=== PATIENT | female | born 1950 | race Caucasian/White ===

== ENCOUNTER → 2020-12-04 17:21 | Outpatient (CLI) | payer MEDICARE, SELFPAY ==
--- NOTE | ~2020-12-04 | XR_ITS ---
EXAMINATION: XR ankle RT min 3V DATE: 12/04/2020 18:11 INDICATION: Right ankle pain. TECHNIQUE: 4 views of right ankle were obtained. COMPARISON: None. FINDINGS: Bone alignment is normal. No fracture. Joint spaces are well maintained. There are enthesop hytes at the posterior and plantar aspects of calcaneal tuberosity. There is ankle soft tissue swelli ng. IMPRESSION: 1. No fracture. Reviewed, dictated and finalized at location A. IMPRESSION: 1. No fracture.
== END ==
PROVIDERS: PCP Internal Medicine; Visit Provider Internal Medicine
DX: M25.571 Pain in right ankle and joints of right foot (principal)
CPT/HCPCS: 73610

== ENCOUNTER 2023-08-22 17:04 | Emergency (ER) | payer MEDICARE, SELFPAY ==
--- NOTE | ~2023-08-22 | XR_ITS ---
EXAMINATION: XR foot RT min 3V DATE: 08/22/2023 17:30 INDICATION: Nontraumatic pain at the lateral right midfoot TECHNIQUE: Dorsoplantar, two oblique and lateral views of the right foot were obtained. COMPARISON: Right ankle radiographs dated 12/04/2020 FINDINGS: Diffuse osteopenia. Bone alignment is normal. No fracture. Severe osteoarthritis at the second and th ird distal interphalangeal joints. Moderate osteoarthritis at the second-fourth tarsal metatarsal amando nts and several of the remaining interphalangeal joints and mild at the first metatarsophalangeal and first and fifth tarsal metatarsal joints. No erosions to suggest inflammatory arthritis. Moderate si ze plantar calcaneal spur and tiny Achilles calcaneal spur. Soft tissue swelling at the dorsolateral aspect of the midfoot.. IMPRESSION: 1. 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 No acute osseous abnor mality. Reviewed, dictated and finalized at location A. [employer] IMPRESSION: 1. 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 No acute osseous abnormality.
[2023-08-22 17:10] VITALS: BP 136/79; PULSE 100; RESP 16; TEMP 37.6; O2SAT 98
--- NOTE | 2023-08-22 17:32 | ED.GENADULT ---
HPI - General Adult General Chief complaint: Extremity Injury, Lower Stated complaint: Right Foot Pain Source: patient, RN notes reviewed and old records reviewed Mode of arrival: ambulatory Limitations: no limitations History of Present Illness HPI narrative: 73-year-old female presents to [facility] with complaints of right foot pain and swelling that started on Friday. Patient denies injury. Patient states has tried resting, icing, and elevating with little relief. MD complaint: Foot pain Onset (ago): day(s) (5) Related Data Home Medications Medication Instructions Recorded Confirmed levothyroxine 88 mcg tablet mcg 08/22/23 meclizine 25 mg tablet mg 08/22/23 metformin 500 mg tablet,extended mg PO 08/22/23 release 24 hr nortriptyline 25 mg capsule mg 08/22/23 omeprazole 20 mg capsule,delayed mg 08/22/23 release rosuvastatin 5 mg tablet mg 08/22/23 sumatriptan succinate 100 mg tablet mg PO 08/22/23 topiramate 50 mg tablet mg 08/22/23 triamterene 37.5 cap 08/22/23 mg-hydrochlorothiazide 25 mg capsule Allergies Allergy/AdvReac Type Severity Reaction Status Date / Time Penicillins Allergy Rash Verified 08/22/23 17:22 Review of Systems Constitutional: Constitutional: Reports no additional constitutional complaints, Denies body ache(s), Denies chills, Denies fatigue, Denies fever(s) and Denies headache(s) Eyes: Eyes: Reports no additional eye complaints and Denies blurry vision ENT: Reports system reviewed and no additional complaints, except as documented, Denies vertigo, Denies dizziness, Denies ear discharge, Denies otalgia, Denies facial pain, Denies headache(s), Denies nasal congestion, Denies nasal discharge, Denies sinus pain, Denies sinus pressure and Denies sore throat Cardiovascular: Cardiovascular: Reports no additional cardiovascular complaints, Denies chest pain, Denies chest pain at rest, Denies rapid heart rate and Denies dyspnea Respiratory: Respiratory: Reports no additional respiratory complaints, Denies chest congestion, Denies cough, Denies pain on inspiration, Denies pain with cough and Denies dyspnea Gastrointestinal: Gastrointestinal: Denies abdominal pain, Denies diarrhea, Denies nausea and Denies vomiting Musculoskeletal: Musculoskeletal: Reports as per HPI Comments: right foot pain Integumentary/Breasts: Skin/Breast: Denies rash Neurologic: Reports system reviewed and no additional complaints, except as documented, Denies vertigo, Denies dizziness and Denies headache(s) Endocrine: Endocrine: Denies fatigue PMFSH Comments At the time of my signature, I reviewed and agree with the nursing past medical, surgical, social, and family history. There is no relevant family history pertinent to the patient complaint. Exam Const: General: cooperative, healthy appearing, no acute distress and well nourished Nutritional Appearance: well nourished Orientation/consciousness: patient oriented x3 Limitations: no limitations HENMT: Head: normal to inspection and normocephalic Ears: external ears normal, TM's normal bilaterally, mastoids normal and Abnormal EAC present Face/Nose/Sinus: normal facial exam Face and sinus: normal facial exam Mouth: Yes Normal oral and palatal mucosa present, Yes oropharynx normal and Yes moist mucous membranes Throat: tonsils normal, uvula midline and no uvular edema Eyes: General: appearance normal, both eyes and all related structures Sclera: sclerae normal Pupils: Equal, round and reactive pupils present Resp: Effort & Inspection: normal respiratory effort, able to speak in complete sentences, no audible wheezes, no cough, no respiratory distress and no retractions Cardio: Rate: regular rate Skin: General skin exam: normal color and no rashes or lesions noted Neuro: General: patient oriented x3 Cranial nerves: Yes Equal, round and reactive pupils present Extrem: Left lower extremity: foot Details: normal capillary refill, te
== END 2023-08-22 18:05 | disposition home or self-care (01) ==
PROVIDERS: Emergency Provider Registered Nurse; PCP Internal Medicine
DX: M19.071 Primary osteoarthritis, right ankle and foot (principal)
CPT/HCPCS: 73630; 99213; G0463